=== PATIENT | male | born 1955 | race Caucasian/White ===

== ENCOUNTER 2024-06-02 07:46 | Day surgery (SDC) | payer MEDICARE, OTHER ==
[2024-06-02] MEDS: Lactated Ringers 1,000 ML IV SCH (08:25)
[2024-06-02] MEDS ORDERED: Propofol 200 MG/20 ML SDV ONE (08:46)
[2024-06-02] MEDS ORDERED: fentaNYL 50 MCG/ML SDV ONE (08:46)
== END 2024-06-02 11:00 | disposition home or self-care (01) ==
LOC: JP.SDS 07:46
PROVIDERS: ATTEND Family Medicine
DX: Z12.11 Encounter for screening for malignant neoplasm of colon (principal); K57.30 Diverticulosis of large intestine without perforation or abscess without bleeding; I10 Essential (primary) hypertension; E78.5 Hyperlipidemia, unspecified; I48.91 Unspecified atrial fibrillation; Z79.01 Long term (current) use of anticoagulants; Z79.899 Other long term (current) drug therapy; Z88.0 Allergy status to penicillin; Z88.2 Allergy status to sulfonamides
CPT/HCPCS: 00812-QZ; G0121; J2704; J3010; J7120

== ENCOUNTER 2024-11-03 09:45 | Day surgery (SDC) | payer MEDICARE, OTHER ==
[~2024-11-03 09:45] MED LIST: Midazolam 1 MG/ML 2 ML SDV ONE; Propofol 200 MG/20 ML SDV ONE; Sodium Chloride 0.9% 10 ML ONE; fentaNYL 100 MCG/2 ML SDV ONE
[2024-11-03] MEDS: Lactated Ringers 1,000 ML IV SCH (10:25)
[2024-11-03] MEDS ORDERED: Propofol 200 MG/20 ML SDV ONE (10:41)
[2024-11-03] MEDS: Lidocaine 1% w/EPINEPHrine 50 ML, Sodium Bicarbonate 5 MEQ in Sodium Chloride 0.9% 950 ML INJECT ONE ×2 (11:15→11:30)
[2024-11-03] MEDS: Sodium Tetradecyl Sulfate 1% 20 MG/2 ML SDV ONE (11:20)
[2024-11-03] MEDS: Lidocaine 1% with EPINEPHrine 1:100,000 50 ML MDV ONE (11:30)
== END 2024-11-03 12:50 | disposition home or self-care (01) ==
LOC: JP.SDS 09:45
PROVIDERS: ATTEND Surgery
DX: I83.11 Varicose veins of right lower extremity with inflammation (principal); I83.811 Varicose veins of right lower extremity with pain; I10 Essential (primary) hypertension
CPT/HCPCS: 29581; 36471; 36475; 36476; 76998; J1642; J2250; J2704; J3010; J7030; J7120; J3490